=== PATIENT | female | born 1960 | race Caucasian/White ===

== ENCOUNTER 2023-03-10 18:19 | Inpatient (IN) | payer OTHER, SELFPAY ==
[2023-03-10 19:31] LABS: ALT (SGPT) 16 U/L (8-55); AST (SGOT) 32 U/L (5-34); Albumin 3.9 g/dL (3.4-4.8); Alkaline Phosphatase 120 U/L (40-110); Anion Gap 18 mmol/L (10-20); BUN (Urea Nitrogen) 21 mg/dL (9.8-20.1); Bilirubin, Total 0.4 mg/dL (0.2-1.2); Calc. Creatinine Clearance 0 mL/min (70-130); Calcium 8.1 mg/dL (7.8-10.44); Carbon Dioxide 21 mmol/L (23-31); Chloride 95 mmol/L (98-107); Estimated GFR 42; Globulin 2.9 g/dL (2.4-3.5); Glucose 79 mg/dL (80-115); Potassium 5.2 mmol/L (3.5-5.1); Protein, Total 6.8 g/dL (5.8-8.1); Sodium 129 mmol/L (136-145)
[2023-03-10 19:37] LABS: Troponin I Less than 0.010 ng/mL (< 0.028)
[2023-03-10 20:12] LABS: Bilirubin Neg (Negative); Blood, Urine Negative (Negative); Clarity Clear (Clear); Glucose, Urine (Dipstick) Normal (Negative); Ketone, Urine Negative (Negative); Leukocyte 25 (Negative); Nitrite Negative (Negative); Protein, Urine (Dipstick) 15 mg/dl (Neg-Trace); Specific Gravity, Urine 1.015 (1.005-1.030); Urobilinogen Normal mg/dL (Less than 2)
[2023-03-10 20:34] LABS: CAUTI Indications for Culture Dysuria,urgency,freq; RBC/HPF 0-3 HPF (0-3)
[2023-03-10 20:35] LABS: Bacteria/HPF 1+ HPF (None Seen)
[2023-03-10] MEDS ORDERED: Ipratropium/Albuterol 3 ML NEB ONE ×2 (20:36→20:59)
[2023-03-10] MEDS ORDERED: Magnesium 2 GM/50 ML BAG (IN WATER) ONE (20:37)
[2023-03-10] MEDS ORDERED: predniSONE 20 MG TAB ONE (20:37)
[2023-03-10 20:40] LABS: Urine Culture Reflex No No
[2023-03-10 20:44] LABS: #Eosinphils 0.3 10x3/uL (0.0-0.5); #Monocytes 0.7 10x3/uL (0.0-1.1); #Neutrophils 4.4 10x3/uL (1.5-8.4); %Basophils 0.6 % (0.0-2.0); %Eosinophils 3.6 % (0.0-6.0); %Lymphocytes 25.1 % (18.0-47.0); %Monocytes 9.8 % (0.0-10.0); %Neutrophils 60.3 % (40.0-75.0); Hematocrit 31.7 % (34.9-44.5); Hemoglobin 9.9 g/dL (12.0-15.5); Mean Corpuscular HGB CONC 31.2 g/dL (32.0-36.0); Mean Corpuscular Hemoglobin 27.4 pg (27.0-33.0); Mean Corpuscular Volume 87.8 fl (81.6-98.3); Mean Platelet Volume 11.2 fl (7.4-10.4); Platelet Count 193 10x3/uL (150-450); RBC Distribution Width 17.4 % (11.5-14.5); Red Blood Cell (RBC) Count 3.61 10x6/uL (3.90-5.03); White Blood Cell (WBC) Count 7.2 10x3/uL (3.5-10.5)
[2023-03-10 20:45] LABS: Actual Bicarbonate (HCO3v) 24.3 mEq/L (22-28); Analyzer IN Cardio CS ER; Base Excess -2.8 mEq/L (-2 - +2); Calcium, Ionized (venous) 1.03 mmol/L (1.16-1.32); Chloride (VBG) 94 mmol/L (98-106); Critical Notified By: Udy, RRT; Hematocrit-VBG 32 % (36.0-47.0); Puncture Site Other Site; RapidComm Collect By Lab; Sodium 131 mmol/L (133-146); pH (venous) 7.278 (7.32-7.43)
[2023-03-10] MEDS ORDERED: Furosemide 40 MG/4 ML VIAL ONE (20:52)
[2023-03-10 21:49] LABS: Acetaminophen Less than 10 mcg/mL (10.0-30.0); Alcohol Less than 10.0 mg/dL (Less than 10); Salicylate Less than 8.0 mg/dL (15.0-30.0)
[2023-03-10 21:50] LABS: Amphetamine Not Detected (NotDetected); Barbiturates Screen Not Detected (NotDetected); Benzodiazepine Screen Detected (NotDetected); Cocaine Metabolite Screen Not Detected (NotDetected); Methadone Not Detected (NotDetected); Methamphetamine Not Detected (NotDetected); Opiate Screen Not Detected (NotDetected); Oxycodone Screen Not Detected (NotDetected); Phencyclidine (PCP) Not Detected (NotDetected); THC/Cannabinoid Screen Not Detected (NotDetected); Tricyclic Screen Detected (NotDetected)
[2023-03-10] MEDS ORDERED: Ondansetron PF 4 MG/2 ML Vial IVP PRN (22:59)
[2023-03-10] MEDS ORDERED: Ipratropium/Albuterol 3 ML NEB NEB PRN (23:03)
[2023-03-10] MEDS ORDERED: cefTRIAXone (ROCEPHIN) 2 GM VIAL ONE (23:21)
[2023-03-10] MEDS ORDERED: Azithromycin 500 MG VIAL ONE (23:21)
[2023-03-11] MEDS ORDERED: Thiamine HCl 200 MG/2 ML VIAL ONE (00:35)
[2023-03-11 00:55] LABS: Actual Bicarbonate (HCO3a) 25.3 mEq/L (22-28); Analyzer IN Cardio CS ER; Base Excess (BEa) -1.9 mEq/L (-2.0 to +3.0); CO2 Tension 54.8 mmHg (35.0-45.0); Calcium, Ionized (arterial) 1.07 mmol/L (1.12-1.30); Carboxyhemoglobin (COHb) 0.3 gm% (0.0-3.0); Critical Notified By: Udy, RRT; Hematocrit-ABG 31 % (36.0-47.0); Hemoglobin (Hb) 10.4 g/dL (12.0-16.0); Potassium - ABG Lab 4.58 mmol/L (3.70-5.30); Puncture Site LRA; RapidComm Collect By Udy, RRT; pH, Arterial 7.282 (7.35-7.45)
[2023-03-11] MEDS ORDERED: Thiamine HCl 200 MG/2 ML VIAL SLOW IVP SCH (01:00)
[2023-03-11] MEDS ORDERED: methylPREDNISolone Sod Succ 40 MG VIAL ONE (02:42)
[2023-03-11] MEDS: methylPREDNISolone Sod Succ 40 MG VIAL IVP SCH ×2 (02:58→15:45)
[2023-03-11 03:50] LABS: #Monocytes 0.1 10x3/uL (0.0-1.1); #Neutrophils 3.9 10x3/uL (1.5-8.4); %Basophils 0.2 % (0.0-2.0); %Eosinophils 0.2 % (0.0-6.0); %Lymphocytes 17.5 % (18.0-47.0); %Neutrophils 79.5 % (40.0-75.0); Hemoglobin 9.9 g/dL (12.0-15.5); Mean Corpuscular HGB CONC 30.9 g/dL (32.0-36.0); Mean Corpuscular Hemoglobin 27.5 pg (27.0-33.0); Mean Corpuscular Volume 88.9 fl (81.6-98.3); Mean Platelet Volume 10.7 fl (7.4-10.4); Platelet Count 193 10x3/uL (150-450); RBC Distribution Width 17.8 % (11.5-14.5); White Blood Cell (WBC) Count 4.9 10x3/uL (3.5-10.5)
[2023-03-11 04:02] LABS: Actual Bicarbonate (HCO3v) 23.7 mEq/L (22-28); Analyzer IN Cardio CS ER; Base Excess -4.4 mEq/L (-2 - +2); Chloride (VBG) 96 mmol/L (98-106); Critical Notified By: Udy, RRT; Hematocrit-VBG 33 % (36.0-47.0); Hemoglobin (Hb) 11.1 g/dL (11.7-16.0); Potassium (VBG) 5.27 mmol/L (3.70-5.30); Puncture Site Other Site; RapidComm Collect By LAB; Sodium 136 mmol/L (133-146); pH (venous) 7.227 (7.32-7.43)
[2023-03-11 04:18] LABS: Anion Gap 18 mmol/L (10-20); BUN (Urea Nitrogen) 18 mg/dL (9.8-20.1); Calc. Creatinine Clearance 0 mL/min (70-130); Calcium 8.3 mg/dL (7.8-10.44); Carbon Dioxide 24 mmol/L (23-31); Chloride 96 mmol/L (98-107); Estimated GFR 49; Glucose 113 mg/dL (80-115); Potassium 5.1 mmol/L (3.5-5.1); Sodium 133 mmol/L (136-145)
[2023-03-11 04:26] LABS: Troponin I Less than 0.010 ng/mL (< 0.028)
[2023-03-11 04:36] LABS: SARS-CoV-2 NAA Rapid Test Not Detected (NotDetected)
[2023-03-11] MEDS: Mometasone/Formoterol 200/5 60 PUFF INH SCH ×2 (07:59→19:18)
[2023-03-11] MEDS ORDERED: Carvedilol 6.25 MG TAB PO SCH (08:00)
[2023-03-11] MEDS: Multivitamin W/ Minerals 1 TAB PO SCH (09:00)
[2023-03-11] MEDS: Folic Acid 1 MG TAB PO SCH (09:00)
[2023-03-11] MEDS ORDERED: Famotidine/PF 20 mg/2ml Vial SLOW IVP SCH (09:00)
[2023-03-11] MEDS: Ipratropium/Albuterol 3 ML NEB NEB SCH ×4 (12:06→23:10)
[2023-03-11 12:33] VITALS: BMI 28.7
[2023-03-11] MEDS ORDERED: HYDROcodone/Acetaminophen 5/325 mg Tablet PO PRN (16:41)
[2023-03-11] MEDS ORDERED: Furosemide 40 MG TAB PO SCH (16:45)
[2023-03-11] MEDS ORDERED: hydrALAZINE 25 MG TAB PO PRN (18:05)
[2023-03-11] MEDS: Cyanocobalamin (Vitamin B-12) 1,000 MCG TAB PO SCH (20:46)
[2023-03-11] MEDS: Thiamine 100 MG TAB PO SCH (20:47)
[2023-03-11] MEDS ORDERED: Montelukast Sodium 10 mg Tablet PO SCH (21:00)
[2023-03-11] MEDS ORDERED: Famotidine 20 MG TAB PO SCH (21:00)
[2023-03-11] MEDS ORDERED: traZODone HCl 50 MG TAB PO PRN ×2 (21:10→21:11)
[2023-03-11] MEDS ORDERED: Methocarbamol 500 MG TAB PO PRN (21:11)
[2023-03-11] MEDS: Acetaminophen 650 MG Suppository PR PRN (21:35)
[2023-03-11] MEDS: cefTRIAXone\\ROCEPHIN 2 GM in Sodium Chloride 0.9% 100 ML IVPB SCH (23:32)
[2023-03-11] MEDS: Methyl Salicylate/Menthol 85 GM TUBE TOP PRN (23:36)
[2023-03-12] MEDS: methylPREDNISolone Sod Succ 40 MG VIAL IVP SCH ×2 (01:55→15:10)
[2023-03-12] MEDS: Ipratropium/Albuterol 3 ML NEB NEB SCH ×6 (02:53→22:20)
[2023-03-12] MEDS: Acetaminophen 650 MG Suppository PR PRN (06:59)
[2023-03-12] MEDS: Mometasone/Formoterol 200/5 60 PUFF INH SCH ×2 (07:09→19:19)
[2023-03-12] MEDS: Folic Acid 1 MG TAB PO SCH (09:06)
[2023-03-12] MEDS: Multivitamin W/ Minerals 1 TAB PO SCH (09:06)
[2023-03-12] MEDS: Furosemide 40 MG TAB PO SCH ×2 (09:06→15:10)
[2023-03-12] MEDS ORDERED: traZODone HCl 50 MG TAB PO PRN (11:59)
[2023-03-12] MEDS ORDERED: buPROPion 75 MG TAB PO SCH ×2 (12:00→14:30)
[2023-03-12] MEDS ORDERED: Methocarbamol 500 MG TAB PO PRN (12:07)
[2023-03-12] MEDS ORDERED: QUEtiapine 25 MG TAB PO SCH (13:00)
[2023-03-12] MEDS ORDERED: Doxycycline 100 MG CAP PO SCH (13:00)
[2023-03-12] MEDS ORDERED: Montelukast Sodium 10 mg Tablet PO SCH (21:00)
[2023-03-12] MEDS: Cyanocobalamin (Vitamin B-12) 1,000 MCG TAB PO SCH (21:05)
[2023-03-12] MEDS: Doxycycline 100 MG CAP PO SCH ×3 (21:05→21:17)
[2023-03-12] MEDS: Thiamine 100 MG TAB PO SCH (21:05)
[2023-03-12] MEDS: Acetaminophen 325 MG TAB PO PRN (21:07)
[2023-03-12] MEDS: Methyl Salicylate/Menthol 85 GM TUBE TOP PRN (21:13)
[2023-03-12] MEDS: cefTRIAXone\\ROCEPHIN 2 GM in Sodium Chloride 0.9% 100 ML IVPB SCH (23:39)
[2023-03-13] MEDS: Ipratropium/Albuterol 3 ML NEB NEB SCH ×4 (02:43→14:30)
[2023-03-13 03:42] LABS: #Monocytes 0.9 10x3/uL (0.0-1.1); #Neutrophils 7.8 10x3/uL (1.5-8.4); %Basophils 0.1 % (0.0-2.0); %Lymphocytes 10.3 % (18.0-47.0); %Neutrophils 80.2 % (40.0-75.0); Hematocrit 33.6 % (34.9-44.5); Hemoglobin 10.5 g/dL (12.0-15.5); Mean Corpuscular HGB CONC 31.3 g/dL (32.0-36.0); Mean Corpuscular Hemoglobin 27.6 pg (27.0-33.0); Mean Corpuscular Volume 88.2 fl (81.6-98.3); Mean Platelet Volume 11.3 fl (7.4-10.4); Platelet Count 251 10x3/uL (150-450); RBC Distribution Width 18.5 % (11.5-14.5); Red Blood Cell (RBC) Count 3.81 10x6/uL (3.90-5.03); White Blood Cell (WBC) Count 9.8 10x3/uL (3.5-10.5)
[2023-03-13 03:57] LABS: Anion Gap 17 mmol/L (10-20); BUN (Urea Nitrogen) 7 mg/dL (9.8-20.1); Calc. Creatinine Clearance 101 mL/min (70-130); Calcium 8.9 mg/dL (7.8-10.44); Carbon Dioxide 29 mmol/L (23-31); Chloride 95 mmol/L (98-107); Estimated GFR 99; Glucose 111 mg/dL (80-115); Magnesium 1.4 mg/dL (1.6-2.6); Sodium 138 mmol/L (136-145)
[2023-03-13] MEDS: Acetaminophen 325 MG TAB PO PRN ×2 (05:02→14:56)
[2023-03-13] MEDS: Mometasone/Formoterol 200/5 60 PUFF INH SCH (07:30)
[2023-03-13] MEDS ORDERED: predniSONE 20 MG TAB PO SCH (08:00)
[2023-03-13] MEDS ORDERED: Magnesium Sulfate 4 GM in Sodium Chloride 0.9% 250 ML 250 ML IVPB SCH (08:00)
[2023-03-13] MEDS ORDERED: buPROPion 75 MG TAB PO SCH (09:00)
[2023-03-13] MEDS ORDERED: Carvedilol 6.25 MG TAB PO SCH (09:00)
[2023-03-13] MEDS ORDERED: QUEtiapine 25 MG TAB PO SCH ×2 (09:00→10:15)
[2023-03-13] MEDS: Doxycycline 100 MG CAP PO SCH ×2 (09:17→11:02)
[2023-03-13] MEDS: Magnesium 2 GM/50 ML(in water) 2 GM in Premix 1 BAG IVPB SCH ×2 (09:17→11:01)
[2023-03-13] MEDS: Multivitamin W/ Minerals 1 TAB PO SCH (09:17)
[2023-03-13] MEDS: Potassium Chloride 20 MEQ TAB PO SCH ×2 (09:18→11:01)
[2023-03-13] MEDS: Folic Acid 1 MG TAB PO SCH (09:18)
[2023-03-13] MEDS ORDERED: cloNIDine 0.1 MG TAB PO PRN (09:57)
[2023-03-13] MEDS ORDERED: Mag-Al 1200 mg/1200 mg/30 ML UDCUP PO PRN (10:14)
[2023-03-13] MEDS ORDERED: Mag-Al 1200 mg/1200 mg/30 ML UDCUP PO SCH (10:15)
[2023-03-13 13:38] LABS: Potassium 3.8 mmol/L (3.5-5.1)
[2023-03-13 13:43] VITALS: BP 172/75; TEMP 98
[2023-03-14] MEDS ORDERED: QUEtiapine 25 MG TAB PO SCH (09:00)
== END 2023-03-13 16:00 | disposition home or self-care (01) | DRG 291 ==
LOC: CSHERS 18:19 → CSHERHOLD 22:50 → CSHTELE 03-11 10:57
PROVIDERS: ADMIT Student in an Organized Health Care Education/Training Program; ATTEND Internal Medicine
PROC: 4A033R1 Measurement of Arterial Saturation, Peripheral, Percutaneous Approach (ICD-10-PCS; 2023-03-10)
PROC: 5A09357 Assistance with Respiratory Ventilation, Less than 24 Consecutive Hours, Continuous Positive Airway Pressure (ICD-10-PCS; principal; 2023-03-11)
DX: I13.0 Hypertensive heart and chronic kidney disease with heart failure and stage 1 through stage 4 chronic kidney disease, or unspecified chronic kidney disease (principal); G92.8 Other toxic encephalopathy; I50.33 Acute on chronic diastolic (congestive) heart failure; J96.01 Acute respiratory failure with hypoxia; J96.02 Acute respiratory failure with hypercapnia; J44.1 Chronic obstructive pulmonary disease with (acute) exacerbation; E87.1 Hypo-osmolality and hyponatremia; E87.20 Acidosis, unspecified; N17.9 Acute kidney failure, unspecified; E78.5 Hyperlipidemia, unspecified; E87.5 Hyperkalemia; F10.20 Alcohol dependence, uncomplicated; N18.30 Chronic kidney disease, stage 3 unspecified; D63.1 Anemia in chronic kidney disease; F41.9 Anxiety disorder, unspecified; E83.42 Hypomagnesemia
CPT/HCPCS: 0241U; 36415; 36416; 36600; 70450; 71045; 80048; 80053; 80306; 80307; 81001; 82140; 82805; 83735; 83880; 84443; 84484; 85025; 93005; 94660; 94760; J0456; J0696; J1650; J1940; J2920; J3411; J3475; J3490; J7512; J7620; S0028